=== PATIENT | female | born 1990 | race Caucasian/White ===

== ENCOUNTER 2023-08-26 11:42 | Emergency (ER) | payer SELFPAY | END 2023-08-26 15:18 | disposition home or self-care (01) | LOC: ERS 11:42 | DX: M54.42 Lumbago with sciatica, left side (principal); J45.909 Unspecified asthma, uncomplicated; X50.1XXA Overexertion from prolonged static or awkward postures, initial encounter; Y93.89 Activity, other specified; Y92.69 Other specified industrial and construction area as the place of occurrence of the external cause; Z79.899 Other long term (current) drug therapy | CPT/HCPCS: 96372; 99283; J1885 ==